=== PATIENT | male | born 1955 | race Caucasian/White ===

== ENCOUNTER → 2022-10-07 10:07 | Outpatient (CLI) | payer OTHER, SELFPAY ==
[2022-10-07 10:46] LABS: Basophils # 0.1 K/mm3 (0-0.2); Basophils % 1.6 % (0.1-2.0); Eosinophils # 0.3 K/mm3 (0.0-0.4); Hematocrit 47.6 % (42.0-52.0); Hemoglobin 15.6 g/dL (14.1-18.0); Lymphocytes # 1.9 K/mm3 (0.7-4.5); Lymphocytes % 28.1 % (10-50); Mean Corpuscular HGB Conc 32.8 g/dL (31.8-35.4); Mean Corpuscular Hemoglobin 31.8 pg (27.0-31.2); Mean Platelet Volume 7.8 fl (7.4-10.4); Monocytes # 0.5 K/mm3 (0.1-1.0); Monocytes % 7.5 % (1.7-9.3); Neutrophils # 3.8 K/mm3 (1.8-7.8); Neutrophils % 57.8 % (37.0-80.0); Platelet Count 338 K/mm3 (142-424); Red Blood Count 4.91 M/mm3 (4.60-6.20); Red Cell Distribution Width 12.8 % (11.5-17.5); White Blood Count 6.6 K/mm3 (4.8-10.8)
[2022-10-07 11:19] LABS: Anion Gap 17.4 mEq/L (5-15); Blood Urea Nitrogen 20 mg/dl (9-20); Carbon Dioxide 26 mmol/L (22.0-30.0); Chloride 104 mmol/L (98-107); Potassium 4.4 mmoL/L (3.5-5.1); Sodium 143 mmol/L (136-145)
[2022-10-07 11:20] LABS: Alanine Aminotransferase 99 U/L (12-78); Albumin Level 4.8 g/dl (3.5-5.0); Alkaline Phosphatase 87 U/L (38-126); Aspartate Amino Transferase 98 U/L (17-59); Bilirubin,Direct 0.1 mg/dl (0.0-0.4); Bilirubin,Indirect 0.7 mg/dL (0.0-0.9); Bilirubin,Total 0.8 mg/dl (0.2-1.3); Bilirubin,Unconjugated 0.7 mg/dL (0.0-1.1); Calcium 9.2 mg/dl (8.4-10.2); Chol/HDL Ratio 2.9 (1-3.5); Cholesterol 199 mg/dl (140-200); Estimated Glomerular Filt Rate 84 ml/min (>60); GFR (African American) 102 ML/MIN (>60); Glucose 100 mg/dl (74-100); HDL Cholesterol 68 mg/dl (40-60); Total Protein,Serum 7.6 g/dl (6.3-8.2); Triglycerides 340 mg/dl (30-150); VLDL Cholesterol 68 mg/dL (0-40)
[2022-10-07 11:36] LABS: Free T4 (Free Thyroxine) 0.91 ng/dl (0.78-2.19)
[2022-10-07 11:42] LABS: Direct LDL Cholesterol 89.73 mg/dL (100-129)
[2022-10-07 11:51] LABS: Thyroid Stimulating Hormone 1.38 uIU/mL (0.465-4.68)
[2022-10-14 21:19] LABS: 1,25 Dihydroxy Vitamin D 47 pg/mL (.); 1,25-Dihydroxy, Vitamin D-2 <10 pg/mL (.); 1,25-Dihydroxy, Vitamin D-3 47 pg/mL (.)
== END ==
PROVIDERS: Nurse Practitioner Family; PCP Internal Medicine; Visit Provider Internal Medicine
DX: I25.10 Atherosclerotic heart disease of native coronary artery without angina pectoris (principal); I10 Essential (primary) hypertension; E78.5 Hyperlipidemia, unspecified; Z12.5 Encounter for screening for malignant neoplasm of prostate
CPT/HCPCS: 36415; 80048; 80061; 80076; 82652; 84439; 84443; 85025; G0103

== ENCOUNTER → 2022-10-25 07:09 | Outpatient (CLI) | payer OTHER, SELFPAY ==
--- NOTE | 2022-10-25 07:10 | NM_ITS ---
APPROVED REPORT Exam: Nuclear Stress Test Indication: Cad Patient Location: Outpatient Stress Tech: Krista Palacio [place] Tech:Aileen Matias HOMARCharito RT(R)(N) Ht: 5 ft 10 in Wt: 195 lbs HR: 68 bpm BP: 174/92 mmHg BSA: 2.07 m2 Rhythm: NSR TID: 0.99 BMI: 27.9 History: CAD Procedure: Patient received 0.4 mg of intravenous Lexiscan, resting heart rate 68 bpm, resting blood pressure 174/92 mmHg, with Lexiscan maximum heart rate achieved was 86 bpm which is 85 % of the maximum predicted heart rate and blood pressure was 176/98 mmHg. With Lexiscan, patient denied any complaint of chest pain. Cardiac Stress and Resting SPECT Images: Cardiac Stress and Resting SPECT images were obtained using technetium 99m Myoview 31.3 mCi stress and 10.25 mCi at rest. Resting and stress supine imaging in both supine and prone positions demonstrate no reversible or fixed perfusion defects. Gated imaging demonstrates a low normal global and regional LV systolic function. LVEF is calculated at 50%. Conclusion: No reversible or fixed perfusion defects. Gated imaging demonstrates a low normal global and regional LV systolic function. LVEF is calculated at 50%. Electronically signed by : Dian Wheeler, 10/28/2022 00:34:08
--- NOTE | 2022-10-25 07:10 | CA_ITS ---
APPROVED REPORT Exam: Pharmacologic Technologist: ,, Ht: 5 ft 10 in Wt: 198 lbs BSA: 2.08 m2 HR: 59 bpm BP: 174/92 mmHg Rhythm: NSR Medical History Medications: Aspirin,,,,, Propranolol,,,,, Vitamin C,,,,, Zetia,,,,, Pantoprazole,,,,, Atorvastatin,,,,, Celeoxib,,,,, Vitamin D3, B12,,,,, Feosol,,,,, Stress Test Details Test: LEXISCAN Reason for pharmacologic stress test: physical limitation. HR Resting HR: 68 bpm Max Heart Rate (APMHR): 154 bpm Max HR Achieved: 86 bpm Target HR (85% APMHR): 131 bpm % of APMHR: 56 Recovery HR: 71 bpm BP Resting BP: 174.0/92.0 mmHg Max BP: 176.0/98.0 mmHg Recovery BP: 175.0/101.0 mmHg ECG Resting ECG: NSR, LPFB, poor R wanve progression, cannot R/O old inferior [place] Stress ECG: No change Arrhythmia: None Recovery ECG: No change Recovery Arrhythmia: None Clinical Exercise duration: 04:00 min Highest Stage Achieved: Exercise capacity: 1.0 METs Stress ECG Conclusion Symptoms: mild SOA, abdominal & head discomfort. No CP. Arrhythmias/Ectopy: None ST-T Changes: No significant changes. Conclusion: Unremarkable Lexiscan stress. Myoview images reported separately. Test Summary REST . . . . . . . Resting REST 05:08 . . 68 . 174/ 92 . . Stage 1 01:00 . . 85 . . . . Stage 2 01:00 . . 84 . 176/ 98 . . Stage 3 01:00 . . 75 . 167/ 96 . . Stage 4 01:00 . . 75 . 166/ 96 . Stop exercise at 04:00 RECOVERY 01:00 . . 73 . . . . RECOVERY 02:00 . . 76 . . . . RECOVERY 03:00 . . 71 . . . . RECOVERY 03:18 . . 73 . 175/101 . . Electronically signed by : Dian Wheeler, 10/28/2022 00:31:19
== END ==
PROVIDERS: PCP Internal Medicine; Visit Provider Internal Medicine
DX: I25.10 Atherosclerotic heart disease of native coronary artery without angina pectoris (principal); I10 Essential (primary) hypertension; E78.5 Hyperlipidemia, unspecified; Z95.1 Presence of aortocoronary bypass graft
CPT/HCPCS: 78452; 93017; 93306; A9502; J2785

== ENCOUNTER 2023-01-14 12:45 | Outpatient (CLI) | payer OTHER, SELFPAY ==
[2023-01-14 13:01] VITALS: BP 151/89; PULSE 66; RESP 18; O2SAT 99
== END 2023-01-14 13:15 | disposition home or self-care (01) ==
LOC: INF 12:46
PROVIDERS: PCP Internal Medicine; Visit Provider Internal Medicine
DX: E78.5 Hyperlipidemia, unspecified (principal)
CPT/HCPCS: 96372; J1306